=== PATIENT | female | born 2000 | race Two or more races ===

== ENCOUNTER 2025-08-07 14:51 | Emergency (ER) | payer OTHER ==
[~2025-08-07] VITALS: Ht 157.5 cm; Wt 61.2 kg
[2025-08-07] MEDS ORDERED: FAMOtidine 10 MG/ML (4ML VIAL) IV PUSH ONE (17:30)
[2025-08-07] MEDS ORDERED: 0.9 % SODIUM CHLORIDE 1,000 ML IV ONE (17:30)
[2025-08-07] MEDS ORDERED: KETOROLAC TROMETHAMINE 30 MG VIAL IV ONE (17:30)
[2025-08-07] MEDS ORDERED: ONDANSETRON HCL 2 MG/ML VIAL IV ONE (17:30)
[2025-08-07 18:12] LABS: BASO % 0.3 % (0.1-1.2); EOS # 0.11 (0.04-0.54); EOS % 0.5 % (0.7-7.0); LYMPH # 0.59 (1.18-3.74); LYMPH % 2.7 % (19.3-53.1); MEAN PLATELET VOLUME 9.10 fl (9.4-12.4); MONO # 1.08 (0.24-0.82); MONO % 5.0 % (4.7-12.5); NEUT # 19.83 (1.56-6.13); NEUT % 91.0 % (34.0-71.1); RED CELL DISTRIBUTION WIDTH 16.4 % (11.6-14.4)
[2025-08-07 18:38] LABS: INR 1.01
[2025-08-07 18:46] LABS: ALT/SGPT 15 U/L (12-78); AST/SGOT 22 U/L (15-37); BILIRUBIN TOTAL 0.35 mg/dL (0.3-1.2); BUN CREA RATIO 21 (7.0-25.0); CREATININE SERUM 0.63 mg/dL (0.55-1.02); GFR 116.10; GLOBULINA 4.1 G/DL (2.4-3.5); GLUCOSE FASTING 86 mg/dL (65-100); OSMOLALITY SERUM 281 MOSM/KG (275-295)
[2025-08-07 18:48] LABS: HCG QUANTITATIVE < 1 mUI/mL (1-3)
[2025-08-07] MEDS ORDERED: TAMSULOSIN HCL 0.4 MG CAP PO ONE (19:30)
[2025-08-07] MEDS ORDERED: CEFTRIAXONE SODIUM 1,000 MG VIAL IV ONE (19:30)
[2025-08-07] MEDS ORDERED: PEPCID AC20 MG PO (22:00)
[2025-08-07] MEDS ORDERED: AVIDOXY100 MG PO (22:00)
[2025-08-07] MEDS ORDERED: ZOFRAN8 MG PO (22:00)
[2025-08-07] MEDS ORDERED: NORFLEX100MG PO (22:00)
[2025-08-07 22:06] LABS: URINE APPEARANCE Clear; URINE BILIRRUBIN Negative (NEGATIVE); URINE BLOOD Negative; URINE COLOR Yellow; URINE GLUCOSE Negative (NEGATIVE); URINE LEUKOCYTE Negative; URINE NITRATE Negative; URINE PROTEIN Negative (NEGATIVE); URINE UROBILINOGEN 0.2 E.U./dl
[2025-08-07 22:10] LABS: URINE BACTERIA 2572.7 uL (0.0-1933); URINE EPITHELIAL CELLS 28.4 uL (0.0-38.8); URINE RBC 8.0 uL (0.0-20.8); URINE WBC 52.6 uL (0.0-23.2)
[2025-08-07 22:21] LABS: TYPE CELLS RENAL TUBULAR; URINE CAST 1.02 uL (0.0-1.40); URINE KETONE 80 (NEGATIVE)
== END 2025-08-07 22:25 | disposition home or self-care (01) ==
LOC: ER 14:52
PROVIDERS: General Practice
DX: N83.209 Unspecified ovarian cyst, unspecified side (principal); R10.20 Pelvic and perineal pain unspecified side; R18.8 Other ascites; R10.9 Unspecified abdominal pain; R11.2 Nausea with vomiting, unspecified